=== PATIENT | female | born 1935 | race Caucasian/White ===

== ENCOUNTER 2017-03-26 10:39 | Outpatient (CLI) | payer MEDICARE ==
--- NOTE | 2017-03-26 19:02 | XRAY Report ---
BILATERAL HIPS: 03/26/2017 No comparison. INDICATION: Unspecified hip pain. TECHNIQUE: Two views of each hip. Frontal pelvis. FINDINGS: There is calcification of the right acetabular labrum with mild hypertrophic change of the right femoral head. There is mild calcification about the left gluteal tendons adjacent to the greater trochanter. Alignment is anatomic. No acute bone findings are seen. IMPRESSION: MILD DEGENERATIVE CHANGES OF THE RIGHT HIP. CALCIFIC GLUTEAL TENDINOPATHY ON THE LEFT. JOB #: [id number] EXT JOB #: [id number] [facility]
--- NOTE | 2017-03-26 19:03 | XRAY Report ---
BILATERAL KNEES: 03/26/2017 No comparison. HISTORY: Unspecified right knee pain. TECHNIQUE: Three views of each knee. FINDINGS: RIGHT KNEE: There are mild tricompartmental degenerative changes. There are meniscal calcifications. No effusion. Normal alignment. No acute bone findings. LEFT KNEE: There are mild tricompartmental degenerative changes. There are meniscal calcifications. Mimi-Stieda is noted. Normal alignment. No acute bone findings. There are meniscal calcifications. IMPRESSION: 1. RIGHT KNEE THERE ARE MILD TRICOMPARTMENTAL OSTEOARTHRITIS. FINDINGS CONSISTENT WITH CPPD. 2. LEFT KNEE MILD TRICOMPARTMENTAL OSTEOARTHRITIS. FINDINGS COMPATIBLE WITH CPPD. MIMI-STIEDA INDICATES OLD MCL INJURY. JOB #: [id number] EXT JOB #: [id number]
== END 2017-03-26 10:40 | disposition home or self-care (01) ==
LOC: DI.S 10:39
PROVIDERS: ATTEND Physician Assistant
DX: M17.0 Bilateral primary osteoarthritis of knee (principal); M16.11 Unilateral primary osteoarthritis, right hip; M65.88 Other synovitis and tenosynovitis, other site
CPT/HCPCS: 73521

== ENCOUNTER 2018-01-26 13:00 | Emergency (ER) | payer MEDICARE ==
--- NOTE | 2018-01-26 15:53 | ED Physician Documentation ---
PD HPI URI - Stated complaint Stated Complaint: COUGH/DIZZY - Chief complaint Chief Complaint: Resp - History obtained from History obtained from: Patient, Family - History of Present Illness Timing - onset: Other (3 weeks of cough productive of green sputum with shortness of breath on exertion. No fevers. She also has nasal congestion. No stomach upset or diarrhea. No recent travel.) Review of Systems Constitutional: reports: Fatigue. denies: Fever, Chills Nose: reports: Rhinorrhea / runny nose, Congestion Cardiac: denies: Chest pain / pressure, Palpitations Respiratory: reports: Dyspnea, Cough PD PAST MEDICAL HISTORY - Present Medications Home Medications: Ambulatory Orders Medication Instructions Recorded Confirmed Albuterol Sulf [Ventolin Hfa 1 - 2 puffs INH Q4HR PRN #1 inhaler 01/26/18 Inhaler] Doxycycline Hyclate 100 mg PO BID #20 capsule 01/26/18 - Allergies Allergies/Adverse Reactions: Allergies Allergy/AdvReac Type Severity Reaction Status Date / Time No Known Drug Allergies Allergy Verified 01/26/18 13:06 PD ED PE NORMAL - Vitals Vital signs reviewed: Yes - General General: Alert and oriented X 3, No acute distress - HEENT HEENT: Pharynx benign - Neck Neck: Supple, no meningeal sign, No bony TTP - Cardiac Cardiac: RRR, No murmur - Respiratory Respiratory: Other (Mild expiratory wheezes and slightly diminished, good air motion.) - Extremities Extremities: No edema, No calf tenderness / cord - Neuro Neuro: Alert and oriented X 3, Normal speech Results - Vitals Vitals: Vital Signs - 24 hr 01/26/18 13:04 Temperature 36.1 C L Heart Rate 73 Respiratory 20 Rate Blood Pressure 126/110 H O2 Saturation 98 Oxygen O2 Source Room air PD MEDICAL DECISION MAKING - Sepsis Event Vital Signs: Vital Signs - 24 hr 01/26/18 13:04 Temperature 36.1 C L Heart Rate 73 Respiratory 20 Rate Blood Pressure 126/110 H O2 Saturation 98 Oxygen O2 Source Room air Departure - Departure Disposition: 01 Home, Self Care Clinical Impression: Bronchitis Condition: Good Record reviewed to determine appropriate education?: Yes Instructions: ED Bronchitis Asthmatic Prescriptions: Albuterol Sulf [Ventolin Hfa Inhaler] 1 - 2 puffs INH Q4HR PRN #1 inhaler PRN Reason: Shortness Of Air/Wheezing Doxycycline Hyclate 100 mg PO BID #20 capsule Comments: Call your doctor to arrange a follow-up appointment, make the next available appointment. In the interim, return anytime if worse or if new symptoms dev elop. Your blood pressure was elevated today on check into the emergency department. This does not mean that you have hypertension, it is a common phenomenon to come to the emergency department and have elevated blood pressure. I recommend that you see your primary care physician within the week to have it rechecked when you are feeling better.
--- NOTE | 2018-01-26 16:22 | XRAY Report ---
Reason: cough Procedure Date: 01/26/2018 Accession Number: [id number] / [id number] Procedure: XR - Chest 2 View X-Ray CPT Code: 32750 FULL RESULT: EXAM: CHEST RADIOGRAPHY EXAM DATE: 01/26/2018 04:11 PM. CLINICAL HISTORY: Cough. COMPARISON: 07/26/2012. TECHNIQUE: 2 views. FINDINGS: Lungs/Pleura: Hyperexpanded. Tiny calcified granuloma on the right. No localized infiltrate, consolidation, effusion, or pneumothorax. Mediastinum: Heart and mediastinal contours are unremarkable. Other: Osteopenia, scoliosis, degenerative changes. Old anterior compression of L1 with associated kyphosis. Interval mild upper endplate compression of T11. IMPRESSION: 1. Mild interval upper endplate compression of T11. 2. No acute cardiac pulmonary disease. RADIA
[2018-01-26 16:42] VITALS: BP 128/88
== END 2018-01-26 16:41 | disposition home or self-care (01) ==
LOC: ED 13:00
DX: J40 Bronchitis, not specified as acute or chronic (principal); R03.0 Elevated blood-pressure reading, without diagnosis of hypertension
CPT/HCPCS: 71046; 99283

== ENCOUNTER 2020-02-05 10:09 | Outpatient (CLI) | payer MEDICARE ==
--- NOTE | 2020-02-05 16:42 | DEXA Report ---
PROCEDURE: Dexa Spine and/or Hip INDICATIONS: SCREENING FOR OSTEOPOROSIS TECHNIQUE: Dual energy x-ray absorptiometry (DXA) was performed on a [facility]. Regions measur ed are the AP Spine, femoral neck, and if needed forearm. COMPARISON: None. 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 Patients with diagnosis of osteoporosis or osteopenia should have regular bone mineral density assess ment. For those eligible for Medicare, routine testing is allowed once every 2 years. Testing frequ ency can be increased for patients who have rapidly progressing disease or for those who are receivin g medical therapy to restore bone mass. Reviewed by: Caitlyn Lopez MD on 02/05/2020 4:40 PM PDT Approved by: Caitlyn Lopez MD on 02/05/2020 4:40 PM PDT Station ID: [id number]
== END 2020-02-05 10:10 | disposition home or self-care (01) ==
LOC: DI 10:09
PROVIDERS: ATTEND Nurse Practitioner Family
DX: M81.0 Age-related osteoporosis without current pathological fracture (principal); M85.852 Other specified disorders of bone density and structure, left thigh
CPT/HCPCS: 77080; 77081

== ENCOUNTER 2021-07-08 12:40 | Outpatient (CLI) | payer MEDICARE ==
--- NOTE | 2021-07-08 15:14 | XRAY Report ---
PROCEDURE: Chest 2 View X-Ray INDICATIONS: XRAY TECHNIQUE: 2 view(s) of the chest. COMPARISON: January 2018 FINDINGS: Surgical changes and devices: None. Lungs and pleura: No pleural effusions or pneumothorax. Lungs are clear. Mediastinum: Mediastinal contours are normal. Heart size is normal. Bones and chest wall: Thoracic and lumbar compression fractures similar to January 2018 exam. IMPRESSION: No acute cardiopulmonary process demonstrated radiographically. Reviewed by: Erick Woods MD on 07/08/2021 3:13 PM PDT Approved by: Erick Woods MD on 07/08/2021 3:13 PM PDT Station ID: [id number]
== END 2021-07-08 12:41 | disposition home or self-care (01) ==
LOC: LAB.S 12:40 → DI.S 12:41
PROVIDERS: ATTEND Registered Nurse
DX: J40 Bronchitis, not specified as acute or chronic (principal)

== ENCOUNTER 2022-04-27 07:00 | Outpatient (CLI) | payer MEDICARE | END 2022-04-27 23:59 | disposition home or self-care (01) | LOC: LAB.S 07:00 | PROVIDERS: ATTEND Registered Nurse | DX: R30.0 Dysuria (principal) | CPT/HCPCS: 87086; 87181 ==

== ENCOUNTER 2022-06-01 18:43 | Outpatient (CLI) | payer MEDICARE | END 2022-06-01 18:44 | disposition critical access hospital (66) | LOC: EMS 18:43 | DX: R41.0 Disorientation, unspecified (principal); R42 Dizziness and giddiness; R11.0 Nausea; R53.1 Weakness; R51.9 Headache, unspecified | CPT/HCPCS: A0425; A0427 ==

== ENCOUNTER 2022-06-01 19:20 | Observation (INO) | payer MEDICARE ==
--- OUTSIDE RECORDS SUMMARY | 2022-06-01 19:28 | EXTERNAL MEDICAL SUMMARY RPT | Continuity of Care Document ---
:1935 Author Organization [place] Address [address] [place] [address] Phone Care Team Providers Name Role Phone Unavailable Unavailable Unavailable Bj Portillo, Jae Unavailable Unavailable [place] Patient Registrar, Eloisa Unavailable Benja Appiah Rn, Fabi Unavailable Unavailable Bijal Rn, Fabi Unavailable Unavailable Allergies No information. Encounters No information. Functional Status No information. Immunizations No information. Medications date description facility 2022-04-27 00:00 amoxicillin-pot clavulanate Walk-In Cl in [facility] 2022-04-27 00:00 amoxicillin-pot clavulanate Walk[facility]In [facility] 2022-04-27 00:00 amoxicillin-pot clavulanate Walk[facility]In [facility] 2022-04-27 00:00 amoxicillin-pot clavulanate Walk[facility]In [facility] 2022-04-27 00:00 amoxicillin-pot clavulanate Walk[facility]In [facility] 2022-04-27 00:00 amoxicillin-pot clavulanate Walk[facility]In [facility] 2022-04-27 00:00 amoxicillin-pot clavulanate Walk[facility]In [facility] 2022-04-27 00:00 amoxicillin-pot clavulanate Walk[facility] 2022-04-27 00:00 amoxicillin-pot clavulanate Walk[facility]In [facility] 2022-04-27 00:00 amoxicillin-pot clavulanate Walk[facility]In [facility] 2022-04-27 00:00 amoxicillin-pot clavulanate Walk[facility] 2022-04-27 00:00 amoxicillin-pot clavulanate [facility] Problems date description facility 2022-04-27 00:00 No current problems or disability [facility] 2022-04-27 00:00 Dysuria [facility] 2022-04-27 00:00 Dysuria [facility] 2022-04-27 00:00 Dysuria [facility] Procedures date description facility 2022-04-27 00:00 Visit Code Hold [facility] [place] 2022-04-27 00:00 Visit Code Hold [facility] 2022-04-27 00:00 Visit Code Hold [facility] [place] 2022-04-27 00:00 POC URINALYSIS DIP [facility] [place] 2022-04-27 00:00 POC URINALYSIS DIP [facility] [place] 2022-04-27 00:00 POC URINALYSIS DIP [facility] [place] 2022-04-27 00:00 Urine C&S [facility] [place] 2022-04-27 00:00 Urine C&S [facility] [place] 2022-04-27 00:00 Urine C&S [facility] Results/Labs test date author facility value unit interpret ation Result panel 1 (unknown) (no date) (unknown) Walk-In (no value) (units (unk nown) Clinic Primary unknown) [facility] Result panel 2 (unknown) (no date) (unknown) Walk-In (no value) (units (unk nown) Clinic Primary unknown) [facility] Result panel 3 (unknown) (no date) (unknown) Walk-In (no value) (units (unk nown) Clinic Primary unknown) [facility] Result panel 4 (unknown) (no date) (unknown) Walk-In (no value) (units (unk nown) Clinic Primary unknown) [facility] Result panel 5 (unknown) (no date) (unknown) Walk-In (no value) (units (unk nown) Clinic Primary unknown) [facility] Result panel 6 (unknown) (no date) (unknown) Walk-In (no value) (units (unk nown) Clinic Primary unknown) [facility] Result panel 7 (unknown) (no date) (unknown) Walk-In (no value) (units (unk nown) Clinic Primary unknown) [facility] Result panel 8 (unknown) (no date) (unknown) Walk-In (no value) (units (unk nown) Clinic Primary unknown) [facility] Result panel 9 (unknown) (no date) (unknown) Walk-In (no value) (units (unk nown) Clinic Primary unknown) [facility] Result panel 10 (unknown) (no date) (unknown) Walk-In (no value) (units (unk nown) Clinic Primary unknown) [facility] Result panel 11 (unknown) (no date) (unknown) Walk-In (no value) (units (unk nown) Clinic Primary unknown) [facility] Result panel 12 (unknown) (no date) (unknown) Walk-In (no value) (units (unk nown) Clinic Primary unknown) [facility] Result panel 13 (unknown) (no date) (unknown) Walk-In (no value) (units (unk nown) Clinic Primary unknown[facility] Result panel 14 (unknown) (no date) (unknown) Walk-In (no value) (units (unk nown) Clinic Primary unknown) [facility] Result panel 15 (unknown) (no date) (unknown) Walk-In (no value) (units (unk nown) Clinic Primary unknown[facility] Result panel 16 (unknown) (no date) (unknown) Walk-In (no value) (units (unk nown) Clinic Primary unknown[facility] Result panel 17 (unknown) (no date) (unknown) Walk-In (no value) (units (unk nown) Clinic Primary unknown[facility] Result panel 18 (unknown) (no date) (unknown) Walk-In (no value) (units (unk nown) Clinic Primary unknown[facility] Result panel 19 (unknown) (no date) (unknown) Walk-In (no value) (units (unk nown) Clinic Primary unknown[facility] Result panel 20 (unknown) (no date) (unknown) Walk-In (no value) (units (unk nown) Clinic Primary unknown[facility] Result panel 21 (unknown) (no date) (unknown) Walk-In (no value) (units (unk nown) Clinic Primary unknown[facility] Result panel 22 (unknown) (no date) (unknown) Walk-In (no value) (units ([facility] nown) [facility] Result panel 23 (unknown) (no date) (unknown) Walk-In (no value) (units ([facility] nown) Clinic [facility] unknown[facility] Result panel 24 (unknown) (no date) (unknown) Walk-In (no value) (units ([facility] nown) Clinic [facility] Result panel 25 (unknown) (no date) (unknown) Walk-In (no value) (units ([facility] nown) Clinic [facility] unknown[facility] Result panel 26 (unknown) (no date) (unknown) Walk-In (no value) (units ([facility] nown) [facility] Result panel 27 (unknown) (no date) (unknown) Walk-In (no value) (units (unk nown) [facility] Result panel 28 (unknown) (no date) (unknown) Walk-In (no value) (units ([facility] nown) [facility] Result panel 29 (unknown) (no date) (unknown) Walk-In (no value) (units (unk nown) [facility] Result panel 30 (unknown) (no date) (unknown) Walk-In (no value) (units (unk nown) [facility] Result panel 31 (unknown) (no date) (unknown) Walk-In (no value) (units (unk nown) [facility] Result panel 32 (unknown) (no date) (unknown) Walk-In (no value) (units (unk nown) [facility] Result panel 33 (unknown) (no date) (unknown) Walk-In (no value) (units ([facility] nown) [facility] Result panel 34 (unknown) (no date) (unknown) Walk-In (no value) (units ([facility] nown) [facility] Result panel 35 (unknown) (no date) (unknown) Walk-In (no value) (units ([facility] nown) [facility] Result panel 36 (unknown) (no date) (unknown) Walk-In (no value) (units ([facility] nown) [facility] Result panel 37 (unknown) (no date) (unknown) Walk-In (no value) (units ([facility] nown) [facility] Result panel 38 (unknown) (no date) (unknown) Walk-In (no value) (units ([facility] nown) [facility] Result panel 39 (unknown) (no date) (unknown) Walk-In (no value) (units ([facility] nown) [facility] Result panel 40 (unknown) (no date) (unknown) Walk-In (no value) (units ([facility] nown) [facility] Result panel 41 (unknown) (no date) (unknown) Walk-In (no value) (units ([facility] nown) [facility] Result panel 42 (unknown) (no date) (unknown) Walk-In (no value) (units ([facility] nown) [facility] Result panel 43 (unknown) (no date) (unknown) Walk-In (no value) (units ([facility] nown) [facility] Result panel 44 (unknown) (no date) (unknown) Walk-In (no value) (units ([facility] nown) [facility] Result panel 45 (unknown) (no date) (unknown) Walk-In (no value) (units ([facility] nown) [facility] Result panel 46 (unknown) (no date) (unknown) Walk-In (no value) (units ([facility] nown) [facility] Result panel 47 (unknown) (no date) (unknown) Walk-In (no value) (units (unk nown) [facility] Result panel 48 (unknown) (no date) (unknown) Walk-In (no value) (units (unk nown) [facility] Social History date description facility 2022-04-27 00:00 Never smoker Walk[facility] 2022-04-27 00:00 Never smoker [facility] 2022-04-27 00:00 Never smoker [facility] 2022-04-27 00:00 Unknown if ever smoked Walk-In [facility] Vital Signs date measurement value units 2022-04-27 00:00 BMI 23.70 kg/m2 2022-04-27 00:00 BP_diastolic 77 mmHg 2022-04-27 00:00 BP_systolic 128 mmHg 2022-04-27 00:00 heart_rate 74 /min 2022-04-27 00:00 height_metric 154.94 cm 2022-04-27 00:00 height_standard 61 in 2022-04-27 00:00 respiration_rate 16 /min 2022-04-27 00:00 temperature_metric 36.5 C 2022-04-27 00:00 temperature_standard 97.7 F 2022-04-27 00:00 weight_metric 56.7 kg 2022-04-27 00:00 weight_standard 125 lb
[2022-06-01 19:48] LABS: BASOPHILS # (AUTO) 0.1 10^3/uL (0.0-0.1); BASOPHILS % (AUTO) 0.8 %; EOSINOPHILS # (AUTO) 0.3 10^3/uL (0.0-0.7); EOSINOPHILS % (AUTO) 4.6 %; HCT - HEMATOCRIT 43.8 % (37.0-47.0); HGB - HEMOGLOBIN 13.9 g/dL (12.0-16.0); LYMPHOCYTES # (AUTO) 1.9 10^3/uL (1.5-3.5); LYMPHOCYTES % (AUTO) 26.2 %; MEAN CORPUSCULAR HEMOGLOBIN 29.8 pg (27.0-31.0); MEAN CORPUSCULAR HGB CONC 31.7 g/dL (32.0-36.0); MEAN CORPUSCULAR VOLUME 93.8 fL (81.0-99.0); MEAN PLATELET VOLUME 9.4 fL (7.9-10.8); MONOCYTES # (AUTO) 0.5 10^3/uL (0.0-1.0); MONOCYTES % (AUTO) 7.1 %; NEUTROPHILS # (AUTO) 4.4 10^3/uL (1.5-6.6); NEUTROPHILS % (AUTO) 61.2 %; PLT - PLATELET COUNT 219 10^3/uL (130-450); RED BLOOD COUNT 4.67 10^6/uL (4.20-5.40); WHITE BLOOD COUNT 7.2 x10^3/uL (4.8-10.8)
[2022-06-01 19:49] LABS: INR 0.9 (0.8-1.2); PT - PROTHROMBIN TIME 10.4 secs (9.9-12.6)
[2022-06-01 19:53] LABS: VBG PCO2 53.9 mmHg (41-51); VBG PH 7.37 (7.31-7.41)
[2022-06-01 19:54] LABS: VBG BASE EXCESS 3.8 mmol/L (-2 - +2); VBG HCO3 30.5 mmol/L (23-28); VBG OXYGEN SATURATION 45.4 % (60-80); VBG PO2 24.1 mmHg (25-47); VBG TOTAL CO2 32.1 mmol/L (24-29)
--- NOTE | 2022-06-01 19:58 | ED Physician Documentation ---
History of Present Illness - Stated complaint Stated Complaint: CODE STROKE - Chief complaint Chief Complaint: Neuro - Additonal information Additional information: Patient is 86-year-old female presenting to the emergency department with com plaints of dizziness, altered mental status, nausea and vomiting. Patient last known well 1300 hrs. History obtained from both patient and EMS. Per patient's history she returned from her regular fitness class, was reading a magazine and became acutely dizzy, so much so that she was unable to stand or walk. Initially she described it as a lightheaded sensation however she would later endorse for symptoms more vertiginous in nature. She reports that she was crawling around on the floor and had nausea and vomiting. EMS reported that she was disorientated and having confused speech at the time of their arrival.They did not appreciate any focal or lateralizing neurologic deficits but did report that she was quite distressed and flailing her arms at the time of arrival.EMS report that her mentation as well as speech have cleared dramatically in the 45 minutes since their arrival to the scene to their arrival to the emergency department.She received Zofran prior to arrival. Patient denies any chronic medical issues including any history of CVA, or cardiac history. Denies any history of seizure disorder. Presently reports feeling well however states that she overall feels confused about the events that occurred earlier today. States that she has had increased urinary frequency but no dysuria or malodorous urine. Otherwise denies for any fever, chills, chest pain, shortness of breath, abdominal pain, nausea, vomiting, diarrhea or constipation. Review of Systems Constitutional: denies: Fever, Chills Eyes: denies: Loss of vision Ears: denies: Loss of hearing Nose: denies: Rhinorrhea / runny nose Throat: denies: Dental pain / toothache Cardiac: denies: Palpitations, Pedal edema Respiratory: denies: Dyspnea GI: denies: Abdominal Pain, Nausea, Vomiting, Diarrhea : reports: Frequency. denies: Dysuria, Hesitancy Skin: denies: Rash Musculoskeletal: denies: Neck pain Neurologic: reports: Generalized weakness, Confused. denies: Focal weakness, Numbness, Difficulty speaking, Seizure Psychiatric: denies: Depressed PD PAST MEDICAL HISTORY - Past Surgical History Past Surgical History: No - Present Medications Home Medications: Ambulatory Orders Medication Instructions Recorded Confirmed No Known Home Medications 06/01/22 06/01/22 - Allergies Allergies/Adverse Reactions: Allergies Allergy/AdvReac Type Severity Reaction Status Date / Time No Known Drug Allergies Allergy Verified 01/26/18 13:06 - Social History Does the pt smoke?: No Smoking Status: Never smoker Does the pt drink ETOH?: No Does the pt have substance abuse?: No - Immunizations Immunizations are current?: Yes - POLST Patient has POLST: No PD ED PE NORMAL - Vitals Vital signs reviewed: Yes (Within normal limits) - General General: Alert and oriented X 3, No acute distress, Well developed/nourished - HEENT HEENT: Atraumatic, PERRL, EOMI, Ears normal, Moist mucous membranes, Pharynx benign, Dentition benign - Neck Neck: Supple, no meningeal sign, No bony TTP, No adenopathy, Thyroid normal, No JVD, No bruit - Cardiac Cardiac: RRR, No murmur, No gallop - Respiratory Respiratory: No respiratory distress, Clear bilaterally - Abdomen Abdomen: Normal bowel sounds - Female Female : Deferred - Rectal Rectal: Deferred - Back Back: No CVA TTP - Derm Derm: Normal color, No rash - Extremities Extremities: No deformity - Neuro Neuro: Alert and oriented X 3, 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 No: Prolonged QT QRS: Normal Ischemia: Normal ST segments, Non specific changes Compare to prior EKG: Old EKG unavailable - Labs Labs: Laboratory Tests 06/01/22 06/01/22 06/01/22 19:30 19:30 19:30 WBC 7.2 RBC 4.67 Hgb 13.9 Hct 43.8 MCV 93.8 MCH 29.8 MCHC 31.7 L RDW 13.0 Plt Count 219 MPV 9.4 Neut # (Auto) 4.4 Lymph # (Auto) 1.9 [place] # (Auto) 0.5 Eos # (Auto) 0.3 Baso # (Auto) 0.1 Absolute Nucleated RBC 0.00 Nucleated RBC % 0.0 PT 10.4 INR 0.9 VBG pH VBG pCO2 VBG pO2 VBG HCO3 VBG Total CO2 VBG O2 Saturation VBG Base Excess Sodium 139 Potassium 3.9 Chloride 102 Carbon Dioxide 26 Anion Gap 11.0 BUN 19 Creatinine 0.8 Estimated GFR (MDRD) 68 L Glucose 101 H Calcium 9.9 Magnesium 2.1 Total Bilirubin 0.5 AST 18 ALT 13 Alkaline Phosphatase 58 Troponin I High Sens Total Protein 7.1 Albumin 3.9 Globulin 3.2 Albumin/Globulin Ratio 1.2 Lipase 33 TSH Urine Color Urine Clarity Urine pH Ur Specific [place] Urine Protein Urine Glucose (UA) Urine Ketones Urine Occult Blood Urine Nitrite Urine Bilirubin Urine Urobilinogen Ur Leukocyte Esterase Ur Microscopic Review Urine Culture Comments Ethyl Alcohol < 5.0 SARS-CoV-2 (PCR) 06/01/22 06/01/22 06/01/22 19:30 19:30 19:49 WBC RBC Hgb Hct MCV MCH MCHC RDW Plt Count MPV Neut # (Auto) Lymph # (Auto) [place] # (Auto) Eos # (Auto) Baso # (Auto) Absolute Nucleated RBC Nucleated RBC % PT INR VBG pH 7.370 VBG pCO2 53.9 H VBG pO2 24.1 L VBG HCO3 30.5 H VBG Total CO2 32.1 H VBG O2 Saturation 45.4 L VBG Base Excess 3.8 H Sodium Potassium Chloride Carbon Dioxide Anion Gap BUN Creatinine Estimated GFR (MDRD) Glucose Calcium Magnesium Total Bilirubin AST ALT Alkaline Phosphatase Troponin I High Sens 8.5 Total Protein Albumin Globulin Albumin/Globulin Ratio Lipase TSH 3.96 Urine Color Urine Clarity Urine pH Ur Specific [place] Urine Protein Urine Glucose (UA) Urine Ketones Urine Occult Blood Urine Nitrite Urine Bilirubin Urine Urobilinogen Ur Leukocyte Esterase Ur Microscopic Review Urine Culture Comments Ethyl Alcohol SARS-CoV-2 (PCR) 06/01/22 06/01/22 19:52 20:32 WBC RBC Hgb Hct MCV MCH MCHC RDW Plt Count MPV Neut # (Auto) Lymph # (Auto) [place] # (Auto) Eos # (Auto) Baso # (Auto) Absolute Nucleated RBC Nucleated RBC % PT INR VBG pH VBG pCO2 VBG pO2 VBG HCO3 VBG Total CO2 VBG O2 Saturation VBG Base Excess Sodium Potassium Chloride Carbon Dioxide Anion Gap BUN Creatinine Estimated GFR (MDRD) Glucose Calcium Magnesium Total Bilirubin AST ALT Alkaline Phosphatase Troponin I High Sens Total Protein Albumin Globulin Albumin/Globulin Ratio Lipase TSH Urine Color YELLOW Urine Clarity CLEAR Urine pH 6.0 Ur Specific [place] 1.020 Urine Protein NEGATIVE Urine Glucose (UA) NEGATIVE Urine Ketones NEGATIVE Urine Occult Blood NEGATIVE Urine Nitrite NEGATIVE Urine Bilirubin NEGATIVE Urine Urobilinogen 0.2 (NORMAL) Ur Leukocyte Esterase NEGATIVE Ur Microscopic Review NOT INDICATED Urine Culture Comments NOT INDICATED Ethyl Alcohol SARS-CoV-2 (PCR) NOT DETECTED PD Medical Decision Making - ED course Complexity details: reviewed results, re-evaluated patient, considered differential, d/w patient, d/w family, 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 Afebrile, hemodynamically stable on arrival to the emergency department. No focal or lateralizing neurologic deficits. Last known well was 1300 hrs., approximately 6 hours prior to arrival here. Blood glucose was within normal limits on arrival. Physical exam demonstrated an otherwise healthy-appearing 86-year-old female with clear speech and clear mentation. EKG is on above negative for indications of acute cardiac ischemia or dysrhythmia. Comprehensive labs including CBC, comprehensive metabolic panel, coagulation testing, blood gas and toxicologic screens all within normal limits. CTA head and neck did not demonstrate any significant abnormality. Patient reevaluated on multiple occasions and found to be resting comfortably however continued to endorse for dizziness which she now described as a vertiginous sensation with sitting up or sitting forward. Overall her presentation is somewhat confusing in that she is an 86-year-old who is highly functional who had an event of altered mental status of unclear etiology. Although her symptoms now would be consistent with benign positional vertigo, It would be highly unusual for this to cause an episode of confusion such as that described by EMS on arrival and her initial description of her symptoms were not consistent with vertiginous dizziness. Overall I believe the patient would benefit from observation and continued evaluation. Did order for full-strength aspirin in the emergency department. Care was discussed with the telehospitalist service who graciously agrees to place admission orders. Departure - Departure Disposition: ED Place in Observation Clinical Impression: Dizziness, Confusion Discharge Date/Time: 06/01/22 23:58
[2022-06-01 20:00] LABS: ALBUMIN 3.9 g/dL (3.2-5.5); ALBUMIN/GLOBULIN RATIO 1.2 (1.0-2.2); ALKALINE PHOSPHATASE 58 IU/L (42-121); ALT ALANINE AMINOTRANSFERASE 13 IU/L (10-60); AST ASPARTATE AMINOTRANSFERASE 18 IU/L (10-42); BILIRUBIN,TOTAL 0.5 mg/dL (0.2-1.0); BUN - BLOOD UREA NITROGEN 19 mg/dL (6-20); CALCIUM 9.9 mg/dL (8.5-10.3); CARBON DIOXIDE - CO2 26 mmol/L (21-32); CHLORIDE 102 mmol/L (101-111); CREATININE 0.8 mg/dL (0.4-1.0); ETOH - ETHANOL < 5.0 mg/dL; GFR - MDRD 68 (>89); GLUCOSE 101 mg/dL (70-100); LIPASE 33 U/L (22-51); MAGNESIUM 2.1 mg/dL (1.7-2.8); POTASSIUM 3.9 mmol/L (3.5-5.0); SODIUM 139 mmol/L (135-145); TOTAL PROTEIN 7.1 g/dL (6.7-8.2)
[2022-06-01 20:40] LABS: BILIRUBIN,URINE NEGATIVE (NEGATIVE); GLUCOSE, URINE (UA) NEGATIVE (NEGATIVE); KETONES,URINE (UA) NEGATIVE (NEGATIVE); LEUKOCYTE ESTERASE, URINE NEGATIVE (NEGATIVE); NITRITE,URINE NEGATIVE (NEGATIVE); OCCULT BLOOD,URINE NEGATIVE (NEGATIVE); PROTEIN,URINE NEGATIVE (NEGATIVE); UROBILINOGEN,URINE 0.2 (NORMAL) E.U./dL (NORMAL)
[2022-06-01 20:42] LABS: CLARITY,URINE CLEAR (CLEAR)
[2022-06-01] MEDS ORDERED: iohexoL-300 100 ML VIAL ONE (20:42)
[2022-06-01] MEDS ORDERED: iohexoL-300 100 ML VIAL IVP ONE (21:14)
--- NOTE | 2022-06-01 22:16 | CT Report ---
PROCEDURE: ANGIO HEAD W/WO INDICATIONS: L sided facial droop CONTRAST: 80mL Omni 300 TECHNIQUE: Precontrast 4.5 mm thick angled axial sections acquired from the foramen magnum to the vertex. Afte r the administration of intravenous contrast, 1 mm thick sections acquired through the [place] is. Postcontrast 4.5 mm thick sections then re-acquired from the foramen magnum to the vertex. 3-di mensional amzinec-rrwxaimun-yaouawomnl (MIP) and/or volume rendering reformats were acquired of the c entral intracranial vasculature. For radiation dose reduction, the following was used: automated ex posure control, adjustment of mA and/or kV according to patient size. COMPARISON: None FINDINGS: Image quality: Excellent. Anterior circulation: Intracranial internal carotid arteries are normal in size and flow. The flow within the paired anterior cerebral arteries is asymmetric as the right SUZANNE is diffusely diminutive a nd the left is quite prominent. The left A2 artery bifurcates at the anterior genu, creating right an d left anterior cerebral artery distally. The flow within the middle cerebral arteries is normal and symmetric. The anterior communicating artery is not seen. No aneurysms are seen. Posterior circulation: Visualized portions of the vertebral arteries demonstrate normal caliber, and join to form a normal appearing basilar artery. Flow within the posterior cerebral arteries is norm al and symmetric. No aneurysms are seen. CSF spaces: Ventricles are normal in size and shape. Basal cisterns are patent. No extra-axial flu id collections. Brain: No midline shift. No intracranial bleeds or masses. Moderate patchy periventricular white m atter hypodensity. No focal cortical volume loss. Bland-white matter interface appears intact. Skull and face: Calvarium and facial bones appear intact, without suspicious lesions. Sinuses: Visualized sinuses and mastoids are clear. IMPRESSION: 1. No CT evidence of acute intracranial process. 2. Patent intracranial circulation without significant stenosis, occlusion or aneurysm. Reviewed by: Cristina Garcia MD on 06/01/2022 10:15 PM PST Approved by: Cristina Garcia MD on 06/01/2022 10:15 PM PST Station ID: [id number]
[2022-06-01] MEDS ORDERED: ASPIRIN 325 MG TABLET PO STA (22:31)
--- NOTE | 2022-06-01 22:36 | CT Report ---
PROCEDURE: ANGIO NECK W INDICATIONS: L sided facial droop, L neck pain CONTRAST: 80mL Omni 300 TECHNIQUE: After the administration of intravenous contrast, 1.5 mm axial sections acquired from the aortic arch to the [place] of [place]. Coronal 3-D maximum intensity projection (MIP) and/or volume rendering ref ormats were then performed. For radiation dose reduction, the following was used: automated exposur e control, adjustment of mA and/or kV according to patient size. COMPARISON: None. FINDINGS: Image quality: Suboptimal due to the patient's neck jewelry.. Carotid system: The great vessels demonstrate a conventional anatomy as they arise from the aortic a rch. The origins of the common carotid arteries appear patent. The common carotid arteries demonstr ate normal calibers and courses. There is moderate calcification at carotid bulbs bilaterally, but de gree of stenosis cannot be determined due to adjacent beam hardening artifact The internal carotid ar teries demonstrate normal caliber and course. Posterior circulation: Moderate calcification of the right vertebral artery origin. The left appears widely patent. The more superior portions of the vertebral arteries demonstrate normal course and ca liber. They join to form a normal appearing basilar artery. Soft tissues: Visualized neck soft tissues demonstrate no suspicious abnormalities. The thyroid is normal in size and there are no incidental findings. Bones: No suspicious bony lesions. Severe multilevel degenerative disc and endplate change in the c ervical spine. Visualized cervical spine appears normally aligned. IMPRESSION: 1. No CT evidence of acute arterial occlusion or dissection. 2. Moderate carotid bulb atherosclerosis causes likely mild subjective luminal narrowing. There is ar tifact from patient's neck jewelry obscuring good measurement of stenosis diameter. Ultrasound is rec ommended. The estimate of stenosis included in the report of the imaging study was calculated using the NASCET method Reviewed by: Cristina Garcia MD on 06/01/2022 10:35 PM PST Approved by: Cristina Garcia MD on 06/01/2022 10:35 PM PST Station ID: [id number]
--- NOTE | 2022-06-01 23:11 | HISTORY & PHYSICAL EXAMINATION ---
Chief Complaint - Chief Complaint Chief Complaint: acute dizziness at home, generalized weakness History of Present Illness - Admitted From Admitted From:: ED - History of Present Illness HPI Comment/Other: This is an 86 yo female with no significant medical hx who was brought to the ED via ambulance after she became acutely dizzy at home after she came back from her fitness class earlier today, along with generalized weakness, slightly confused when EMT arrived but her mental status back to baseline in the ED, according to the ED provider, no slurred speech, facial droop or focal acute neuro deficits. For concern for questionable posterior stroke, hospitalist was contacted to admit the pt for further management. History - Past Medical History Other Past Medical History: no medical hx - Past Surgical History Ortho: reports: Spine surgery - Family & Social History Family History Comment/Other: no contributory Social History Notes: no known tobacco, alcohol or illicit drug use Meds/Allgy - Home Medications Home Medications: Ambulatory Orders Medication Instructions Recorded Confirmed No Known Home Medications 06/01/22 06/01/22 - Allergies Allergies/Adverse Reactions: Allergies Allergy/AdvReac Type Severity Reaction Status Date / Time No Known Drug Allergies Allergy Verified 01/26/18 13:06 Review of Systems - Other Findings Other Findings: Currently waiting for the video cart call back from the RN but based on the ED provider sign out, pertinent + ROS are in the HPI. Exam - Vital Signs Reviewed Vital Signs: Yes Vital Signs: Vital Signs x48h Temp Pulse Resp BP Pulse Ox 06/01/22 22:39 36.6 C 85 17 113/78 95 06/01/22 21:30 76 22 132/58 H 95 06/01/22 21:11 37.1 C 85 16 130/74 94 06/01/22 19:49 82 16 143/72 H 95 06/01/22 19:20 36.8 C 70 16 151/119 H 97 - Physical Exam Comments/Other: (with a help of the ED provider) GENERAL: Patient A and O x 3, NAD. HEENT: Atraumatic, EOMI. PULMONARY: CTAB, equal aeration bilaterally. CARDIAC: RRR, no murmur. GASTROINTESTINAL: NABS, nontender. NEURO: CN 2 to 12 grossly intact, moving all 4 exts, normal strength and sensations of arms/legs. Conclusion/Plan - Lab Results Lab results reviewed: Yes Fish Bones: 06/01/22 19:30 06/01/22 19:30 - Other Other Results/Comments: Assessment and plan: 1. Questionable stroke like symptom 2. Acute encephalopathy, resolved 3. HTN 4. Acute dizziness - CTA head/neck showed no acute process, for stroke workup, will check brain MRI/echo, PT/OT to see her, bedside swallow eval, allow permissive HTN for now until we have brain MRI result, neuro check q4hrs, con't tele, started full dose ASA, check lipid panel, TSH and hgb a1c, fall precaution, SCDs for dvt ppx. Core Measures - Anticipated LOS I expect patient to be DC'd or transferred within 96 hours.: Yes - DVT/VTE - Prophylaxis VTE/DVT Device ordered at admit?: Yes - AMI - Statin at Admit Aspirin Prescribed on Admit: Yes
[2022-06-02] MEDS: SODIUM CHLORIDE FLUSH 0.9% 10 ML SYRINGE IVP PRN ×2 (00:44→09:36)
[2022-06-02 05:24] LABS: CHOL/HDL RATIO 3.8 (<4.4); CHOLESTEROL 227 mg/dL; HDL CHOLESTEROL 60 mg/dL; LDL CHOLESTEROL,CALCULATED 152 mg/dL; LDL/HDL RATIO 2.5 (<4.4); TRIGLYCERIDES 75 mg/dL; VLDL CHOLESTEROL 15 mg/dL
[2022-06-02] MEDS: ASPIRIN CHEW 81 MG TABLET PO SCH (09:57)
[2022-06-02 11:59] LABS: ESTIMATED AVERAGE GLUCOSE 114 mg/dL (70-100); HEMOGLOBIN A1c% 5.6 % (4.27-6.07)
--- NOTE | 2022-06-02 17:24 | MRI Report ---
PROCEDURE: BRAIN WO INDICATIONS: stroke r/o TECHNIQUE: Noncontrast axial T1 spin echo, axial T2 fast spin echo, sagittal and axial FLAIR, coronal T2 fast sp in echo, axial gradient echo, axial diffusion and ADC through the brain. COMPARISON: CT angiography examination dated 06/01/2022 FINDINGS: Image quality: Partially degraded by motion artifact. CSF Spaces: Basal cisterns are patent. No extra-axial fluid collections. Ventricles are normal in size and shape. Brain: No intracranial masses or hemorrhage. Moderate diffuse cerebral volume loss. Mild degree of patchy high FLAIR signal within the periventricular and subcortical white matter. Bland/white matter i nterface is normal. Brainstem appears normal. Diffusion-weighted images demonstrate no acute ischem ic insult. No chronic ischemic insults. Normal intravascular flow voids are present. Skull and face: Calvarium has normal marrow signal. Orbits appear normal. Sinuses: Sinuses and mastoids are clear. IMPRESSION: 1. Volume loss and small vessel ischemic disease. 2. No acute process. No recent infarct. Reviewed by: Enid Baker MD on 06/02/2022 5:23 PM PST Approved by: Enid Baker MD on 06/02/2022 5:23 PM PST Station ID: [id number]
--- NOTE | 2022-06-02 18:20 | PROVIDER PROGRESS NOTE ---
Progress Note June 02, 2022 6:15 PM Delightful lady. Still is dizzy mainly when she stands. She says that when she is laying in bed or turning her head there is no dizziness. There is no double vision. She has been deaf for years. There is no newness to that. And standing then causes the room to spin around and she feels like she is going to fall. She has been fearful enough that we are not able to do orthostatic vital signs on her. Her son was in the room and then I also spoke to her [id number] Chetna AIDAN [place]. I updated the family that her MRI shows normal signs of aging. Angiogram has no significant stenosis. There were no occlusions or aneurysms. She did not have an acute stroke. Her echocardiogram has 60 to 65% impaired relaxation. Ejection fraction is 65%. Mild to moderate right atrial enlargement, no aortic stenosis. Lipomatous hypertrophy of the interatrial septum. No vegetations on her valves. Temperature 36.3. Heart rate 70. Blood pressure 110/87. Respirations 17. 94% on room air. 5 feet 2 inches tall, 57 kg Alert, oriented person place and time. Speech is normal. No dysarthria no dysphagia. Tongue movement is normal. There is no nystagmus. She follows commands normally. she is able to cut her food and bring food to her mouth without any past-pointing or tremor. No focal deficits. She has a occasionally irregular rate and rhythm with a next heartbeat. Telemetry shows sinus arrhythmia. Systolic ejection murmur is audible. Abdomen soft nontender Assessment/plan Acute dizziness. My suspicion is labyrinthitis. Differential diagnosis discussed with the patient was PICA stroke, Mnire's disease, aortic stenosis, atrial fibrillation. None of these were found. But she still severely dizzy when she stands up and makes her very fearful. She will stay overnight, and tomorrow morning will be evaluated by PT and OT. [id number] was wondering if mom could be placed in a jail facility for temporary rehab. I said that that would be possible but it would have to be private pay since she does not meet acute criteria for inpatient status for 72 hours. She said she will talk to her and [id number] and see what they would like.
[2022-06-02] MEDS ORDERED: ASPIRIN CHEW 81 MG TABLET PO SCH (22:00)
[2022-06-03] MEDS: ASPIRIN CHEW 81 MG TABLET PO SCH (08:23)
[2022-06-03] MEDS: SODIUM CHLORIDE FLUSH 0.9% 10 ML SYRINGE IVP PRN (08:23)
[2022-06-03] MEDS ORDERED: polyethylene glycoL 3350 17 GM PACKET PO SCH (10:00)
--- NOTE | 2022-06-03 10:48 | Discharge Plan ---
Discharge Plan Problem Reviewed?: Yes Disposition: Home Health Service Condition: Fair Diet: Regular Activity Restrictions: Activity as Tolerated Shower Restrictions: No Driving Restrictions: No Health Concerns: You presented to our emergency room because you became acutely dizzy at home. You had just come back from your exercise class earlier that day. The dizziness happens only when you stand up. Your head will start to swim. You do not take any medicines at home that would lower your blood pressure. You have no symptoms of infection. The dizziness does not happen when you are sitting down or resting. We were worried about a stroke. Dizziness is a sign of stroke where. Balance is centered in the back of the brain. We did a brain MRI which was without any stroke, or bleeding. We also did an angiogram study of the arteries of your brain and neck. You do have hardening of the arteries which is expected at your age. But nothing appeared severe enough to have caused symptoms. You also went an ultrasound study of the heart which was normal. You have calcifications of some of your valves but nothing serious. We kept you overnight to make sure your heart rhythm was stable. It was. On the morning of discharge, you said all of your symptoms are gone away. Plan of Treatment: At this time there is no change in your medications. We do not feel that you should be taking a Daily aspirin at this time. Care Goals: To remain in your home, and be as independent as you are now No Smoking: If you smoke, Please STOP! Call for help. Follow-up with: Debbie Zavala ARNP [Physician No Access] -
--- NOTE | 2022-06-03 10:53 | DISCHARGE SUMMARY ---
"Discharge Summary Admit Date: 06/01/22 Discharge Date: 06/03/22 Discharging Provider: Yaima Martínez MD Primary Care Provider: Debbie Sally Code Status: Attempt Resuscitation Condition at Discharge: Fair Discharge Disposition: 06 Home Health Service - DIAGNOSES Discharge Diagnoses with Status of Each Condition: 1. Acute dizziness on standing 2. Acute encephalopathy, resolved 3. Hypertension - HPI History of Present Illness: This is an 86 yo female with no significant medical hx who was brought to the ED via ambulance after she became acutely dizzy at home after she came back from her fitness class earlier today, along with generalized weakness, slightly confused when EMT arrived but her mental status back to baseline in the ED, according to the ED provider, no slurred speech, facial droop or focal acute neuro deficits. For concern for questionable posterior stroke, hospitalist was contacted to admit the pt for further management. History - Past Medical History Other Past Medical History: no medical hx - Past Surgical History Ortho: reports: Spine surgery - CONSULTS | PROCEDURES Procedures: MRI of the brain without any acute infarct or hemorrhage. Global changes of aging. CT angiogram of head and neck without any acute changes, focal stenosis. Art erial sclerosis without any significant stenosis. Echocardiogram with mild calcification of mitral and aortic valve but no aortic stenosis. Normal ejection fraction. Normal atrial sizes. - HOSPITAL COURSE Hospital Course: Patient was placed in observation. Telemetry revealed no arrhythmias. She continued to be dizzy the day after discharge. Dizziness was only associated with trying to stand. She had to be coaxed to get out of bed and sit in a chair . To stand. But she was able to eat, swallow. There is no confusion and she was alert and oriented. On the day of discharge dizziness had completely abated. Our supposition is that she may have some labyrinth problems and should follow-up with neurology or ENT. Discharge temperature 36.6. Heart rate 52. Blood pressure 113/65. She did have some mild orthostatic changes with a supine blood pressure of 107/56. Sitting is 112/55. Standing is 91/57. O2 sats remained stable and she is 94% on room air. She is a slender, alert, oriented elderly female. She is 5 feet 2 inches tall weighs 57 kg. Facial symmetry is intact. Speech is intact. There is no dysmetria. No nystagmus. [id number] is normal. Lungs are clear. Regular rate and rhythm. Abdomen soft and nontender. - ALLERGIES Allergies/Adverse Reactions: Allergies Allergy/AdvReac Type Severity Reaction Status Date / Time No Known Drug Allergies Allergy Verified 01/26/18 13:06 - MEDICATIONS Home Medications: Ambulatory Orders Medication Instructions Recorded Confirmed No Known Home Medications 06/01/22 06/01/22 - LABS Result Diagrams: 06/01/22 19:30 06/01/22 19:30"
[2022-06-03 19:58] VITALS: BP 112/61
== END 2022-06-03 14:20 | disposition home health service (06) ==
LOC: EDUNIT# → ED 19:20 → MS3 22:59
PROVIDERS: ADMIT Hospitalist; ATTEND Specialist
DX: R42 Dizziness and giddiness (principal); R11.2 Nausea with vomiting, unspecified; G93.40 Encephalopathy, unspecified; R29.810 Facial weakness; I65.23 Occlusion and stenosis of bilateral carotid arteries; M54.2 Cervicalgia; I10 Essential (primary) hypertension; Z20.822 Contact with and (suspected) exposure to COVID-19
CPT/HCPCS: 36415; 70496; 70498; 70551; 80053; 80061; 81003; 82803; 83036; 83690; 83735; 84443; 84484; 85025; 85610; 87635; 93005; 93306; 97161; 97165; 99284; 99285; A9270; G0378; G0480; Q9967; 80320; 81001; 83721; 87086

== ENCOUNTER 2022-10-13 08:00 | Outpatient (CLI) | payer MEDICARE | END 2022-10-13 23:59 | disposition home or self-care (01) | LOC: LAB.S 08:00 | PROVIDERS: ATTEND Physician Assistant Medical | DX: N39.0 Urinary tract infection, site not specified (principal) | CPT/HCPCS: 87086; 87181 ==